=== PATIENT | male | born 1935 | race Caucasian/White ===

== ENCOUNTER → 2016-11-11 | Outpatient (CLI) | payer MEDICARE, BC, MEDICAID ==
[~2016-11-11] MED LIST: ACIDOPHILUS1 EAC4 PO; ALDACTONE25 MG PO; ASPIRIN LO-DOSE81 MG PO; CEFADROXIL500 MG PO; COLACE100 MG PO; COREG 3.1253.125 MG PO; COREG12.5 MG PO; COZAAR25 MG PO; CUBICIN (NON-F500 MG IV; DULCOLAX10 MG R; FLOMAX0.4 MG PO; FLORASTOR250 MG PO; HOUSE SUPPLEMENT PO; LASIX20 MG PO; LEVOTHROID(SYN75 MCG PO; LOVENOX 4040 MG/0.4 SUB-Q; MILK OF MA400 MG/5 M PO; MIRALAX17 GM PO; MOBIC15 MG PO; MOBIC7.5 MG PO; MYLANTA (MAG-AL30 ML PO; NORCO 5-325 MG1 TAB PO; NORCO 5-325 TA1 EACH PO; PEPCID20 MG PO; PROVENTIL OR V6.7 GM INH; PROVERA10 MG PO; REMERON 30 MG30 MG PO; ROBITUSSIN100 MG/5 M PO; ROXICODONE 5MG (5 MG PO; THERAGRAN-M1 TAB PO; TUBERSOL IDER; TYLENOL325 MG PO; ZOCOR40 MG PO
== END | disposition disaster alternative care site (69) ==
LOC: LNHI 16:37
DX: I50.22 Chronic systolic (congestive) heart failure (principal); I25.10 Atherosclerotic heart disease of native coronary artery without angina pectoris

== ENCOUNTER 2016-12-23 08:47 | Day surgery (SDC) | payer MEDICARE, BC, MEDICAID ==
[~2016-12-23] VITALS: Ht 182.9 cm; Wt 90.6 kg
--- NOTE | ~2016-12-23 | OR ---
PATIENT'S NAME: NATHALY FOSTER [facility] AGE: 81 Y [address] ROOM: [place] [address] LOCATION: GPOC ADMIT DATE: 12/23/2016 OR/Procedure Report DISCHARGE DATE: 12/24/2016 FAMILY PHYSICIAN: Wiley Fournier MD ATTENDING PHYSICIAN: Julio Woody SURGEON: Julio Woody DO 3D DESIGNER: DATE OF PROCEDURE: 12/23/2016 PREOPERATIVE DIAGNOSIS: Ischemic cardiomyopathy. POSTOPERATIVE DIAGNOSIS: Ischemic cardiomyopathy. PROCEDURE: Insertion of dual-chamber ICD via the left subclavian vein. BRIEF HISTORY: Mr. Foster is an 81-year-old white male with the above-noted diagnosis. He has been brought to the operative suite today after informed consent was obtained for placement of this device. PROCEDURE IN DETAIL: The anterior chest wall was sterilely prepped and draped. The left infraclavicular space was anesthetized with 1% lidocaine, and the patient was placed into a deep Trendelenburg position. The subclavian vein was then accessed and guidewire was placed under fluoroscopic guidance into the right atrium. It was a difficult access and only one wire could be easily placed and given the patient's severe kyphosis and pre-existing COPD, had some concern of pneumothoraces and therefore an incision was now created and a pocket was formed, and guidewires were brought through the incision. Electrocautery was used for hemostasis. A sheath and dilator assembly were then placed over the guidewire and the guidewire and dilator were removed. The dilator was then placed back into the sheath and two guidewires were now introduced and now the sheath and dilator assembly were completely removed leaving two guidewires. New sheath and dilator assembly was now placed and we removed the dilator and the guidewire and placed our ventricular ICD lead. It is an [employer] EL lead, model #D142, serial #[id number]. The lead was placed in the right ventricular septum. It is sensing R-waves of 6 to 7 with a measured threshold of 1.1 V at 0.5 milliseconds and a pacing impedance of 650 ohms. It was secured to the pectoral fascia and in a similar fashion, we placed our atrial lead, which is also a [employer] lead, Bizo MRI, model 7741, serial #[id number]. It is placed in the right atrial appendage, sensing P-waves of 2.5 with measured threshold of 0.9 at 0.5 milliseconds, pacing impedance of 870 ohms. The RV lead is the [employer] [place] G model 0296, serial #[id number]. The generator is a [employer] Inogen EL, model D142, serial is [id number]. All leads and generator now placed in the pocket. Appropriate sensing and pacing was noted. The patient is not in need of a pacemaker at this point time, therefore the pacing rate was set at 50 and the pocket was now closed in PATIENT'S NAME: NATHALY FOSTER [facility] AGE: 81 Y [address] ROOM: [place] [address] LOCATION: GPOC ADMIT DATE: 12/23/2016 OR/Procedure Report DISCHARGE DATE: 12/24/2016 FAMILY PHYSICIAN: Wiley Fournier MD ATTENDING PHYSICIAN: Julio Woody. All sponge, instrument, and needle counts were correct and the patient was transferred to the recovery area in stable condition. DO MIRIAM ALONZO/ivory /[id number] d: 01/04/172029 t: 01/06/17 1515, OPERATIVE SUMMARY
[~2016-12-23 08:47] MED LIST changes: -NORCO 5-325 TA1 EACH PO
[2016-12-23 09:36] LABS: INR - (THERAPEUTIC) 0.99 (0.92-1.07); PROTIME 10.4 SECONDS (9.8-11.4)
[2016-12-23 09:44] LABS: BILIRUBIN URINE NEGATIVE (NEGATIVE); BLOOD URINE NEGATIVE /UL (NEGATIVE); GLUCOSE URINE NEGATIVE (NEGATIVE); KETONE URINE NEGATIVE (NEGATIVE); LEUKOCYTES URINE NEGATIVE /UL (NEGATIVE); NITRITE URINE NEGATIVE (NEGATIVE); PROTEIN URINE NEGATIVE (NEGATIVE); SPEC GRAVITY URINE 1.005 (1.003-1.035); UROBILINOGEN URINE NORMAL (NORMAL)
[2016-12-23 09:50] LABS: ALBUMIN 3.9 gm/dL (3.5-5.0); ANION GAP 10.7 (10.0-19.0); BLOOD UREA NITROGEN 15 mg/dL (6-24); CALCIUM 9.4 mg/dL (8.5-10.5); CHLORIDE 109 mMol/L (96-110); CO2 26 mMol/L (22-32); COLOR URINE YELLOW (YELLOW); CREATININE 1.1 mg/dL (0.6-1.3); ESTIMATED GFR (MDRD EQUATION) > 60; PHOSPHORUS 2.9 mg/dL (2.5-4.9); POTASSIUM 4.7 mMol/L (3.7-5.1); SODIUM 141 mMol/L (135-145); TURBIDITY URINE CLEAR (CLEAR)
--- NOTE | 2016-12-23 16:31 | NUR ---
Significant Event: A/Ox3. [id number]. P-70s. Atrial/Dual paced with frequent ectopy. Afebrille. Room air. Lungs clear/diminished. L) Pacer incision covered with gauze and tape. C/D/I. Denies pain. 2+ pulse. L) sling x48 HR. Ice on pacer site PRN. Up with 1A. Has not been up since arrival to floor. Possible discharge home tomorrow.
--- NOTE | 2016-12-24 05:01 | NUR ---
A/O. HR 70-80s. SBP 120-150s. ROOM AIR. AFEBRILE. DRESSING TO L) CHEST C/D/I. ICE PRN. NORCO 1TAB x1. VOIDS PER URINAL. PLAN FOR HOME TODAY.
[2016-12-24] MEDS ORDERED: NORCO 5-325 TA1 EACH PO (10:17)
--- NOTE | 2016-12-24 11:44 | NUR ---
Discharge Note: VSS. Room air. L) subclavian pacer site open to air, gluded. sling to arm x 48 hours. Verblized understanding of discharge teaching and packe maker instructions. Given teaching about norco and post pacemaker surgery. Courtesy packet make for assisted living and given to patient. Patient is up to date on pnemonia vaccine.
== END 2016-12-24 12:19 | disposition disaster alternative care site (69) ==
LOC: GPCU 08:47 → GPOC 08:47 → GPCU 14:42 → GPOC 12-24 12:19
PROVIDERS: Thoracic Surgery (Cardiothoracic Vascular Surgery)
DX: I25.5 Ischemic cardiomyopathy (principal); I25.10 Atherosclerotic heart disease of native coronary artery without angina pectoris; I25.2 Old myocardial infarction
CPT/HCPCS: C1721; C1895; C1898; J0690; J2001; J7030; J7050